=== PATIENT | female | born 2000 ===

== ENCOUNTER 2018-03-26 11:55 | Day surgery (SDC) | payer OTHER ==
[2018-03-26 01:43] VITALS: BMI 24.7
--- NOTE | 2018-03-26 12:14 | CP.SDSHP ---
Same Day Surgery H & P - History Proposed Procedure: eus/ercp Pre-Op Diagnosis: suspected choledocholithiasis - Allergies Allergies: Allergies amoxicillin Allergy (Verified 03/25/18 19:13) RASH - Physical Exam General Appearance: nl Mental Status: Alert & Oriented x3 Neuro: WNL Heart: WNL Lungs: WNL GI: WNL - {Optional Preform as Required} Abdomen: WNL - Impression Impression: abdo pain. eus/ercp/egd Pt. Evaluated Today:Candidate for Anesthesia & Procedure: Yes Short Stay Discharge - Short Stay Discharge Admitting Diagnosis/Reason for Visit: CALCULUS OF BILE DUCT W/O CHOLANGITIS OR CHOLECYST Disposition: HOME/ ROUTINE
[2018-03-26 12:24] VITALS: TEMP 98
[2018-03-26 13:26] VITALS: O2SAT 100
[2018-03-26] MEDS ORDERED: Indomethacin 50 MG Suppository PR ONE (13:30)
[2018-03-26] MEDS ORDERED: Midazolam 2 MG/2 ML VIAL ONE (13:35)
[2018-03-26] MEDS ORDERED: Propofol 10 mg/ml Inj (20 ML) ONE ×2 (13:35→13:37)
[2018-03-26] MEDS ORDERED: Succinylcholine Chloride 20 mg/ml Syr (5 ml) IV ONE (13:37)
[2018-03-26] MEDS ORDERED: Rocuronium 10 mg/ml (5 ml) ONE (13:37)
[2018-03-26] MEDS ORDERED: Neostigmine Methylsulfate 3mg/3ml Syringe IV ONE (15:05)
--- NOTE | 2018-03-26 16:18 | RAD ---
PROCEDURE: Intraoperative fluoroscopy HISTORY: ABD PAIN COMPARISON: Not available TECHNIQUE: Intraoperative fluoroscopy was provided for ERCP. Total time of fluoroscopy was 87.7 seconds. FINDINGS: Multiple fluoroscopic spot films are submitted. IMPRESSION: Fluoroscopy provided.
[2018-03-26 16:43] VITALS: BP 148/83; PULSE 60; RESP 18
== END 2018-03-26 16:30 | disposition home or self-care (01) ==
LOC: C.ENDO 11:55
PROVIDERS: ATTEND Internal Medicine
DX: K80.50 Calculus of bile duct without cholangitis or cholecystitis without obstruction (principal); R10.13 Epigastric pain; K80.10 Calculus of gallbladder with chronic cholecystitis without obstruction; K29.70 Gastritis, unspecified, without bleeding
CPT/HCPCS: 43239; 43262; 43264; 88305; 88313; 88342; C1726; J2001; J2250; J2405; J2704; J2710; J3010